=== PATIENT | male | born 1990 | race Caucasian/White ===

== ENCOUNTER 2016-09-16 11:00 | Emergency (ER) | payer BC, OTHER ==
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
--- NOTE | 2016-09-16 14:33 | Diagnostic Imaging Report ---
Cervical spine (3 views) HISTORY: Pain Alignment is normal. Disc spaces are maintained. Degenerative spur formation noted about the endplates of C5. No acute abnormalities. No fractures. Hypoplastic cervical ribs noted. IMPRESSION: 1. No acute abnormalities 2. Degenerative changes 3. Hypoplastic cervical ribs
--- NOTE | 2016-09-16 15:52 | Diagnostic Imaging Report ---
Lumbar spine (3 views) HISTORY: Pain, trauma Alignment is normal. Disc spaces are maintained. No focal lesions. No fractures. IMPRESSION: Normal examination
--- NOTE | 2016-09-16 15:52 | Diagnostic Imaging Report ---
Thoracic spine (2 views) HISTORY: Pain, trauma Alignment is normal. Disc spaces are maintained. No focal lesions. No fractures. IMPRESSION: No acute abnormalities
== END 2016-09-16 12:45 | disposition home or self-care (01) ==
LOC: ER 11:00
DX: S16.1XXA Strain of muscle, fascia and tendon at neck level, initial encounter (principal); S29.012A Strain of muscle and tendon of back wall of thorax, initial encounter; S39.012A Strain of muscle, fascia and tendon of lower back, initial encounter; S60.222A Contusion of left hand, initial encounter; V89.2XXA Person injured in unspecified motor-vehicle accident, traffic, initial encounter; Y93.89 Activity, other specified; Y92.488 Other paved roadways as the place of occurrence of the external cause; Y99.8 Other external cause status
CPT/HCPCS: 72040-TC; 72072-TC; 72100-TC; Z7502